=== PATIENT | male | born 1960 | race Caucasian/White ===

== ENCOUNTER 2023-07-22 15:28 | Emergency (ER) | payer MEDICARE ==
[2023-07-22 15:47] LABS: BASOPHILS ABSOLUTE AUTO 0.05 K/uL (0.00-0.10); BASOPHILS PERCENT AUTO 0.6 % (0.1-1.3); EOSINOPHILS ABSOLUTE AUTO 0.12 K/uL (0.00-0.40); EOSINOPHILS PERCENT AUTO 1.4 % (0.0-5.4); HEMATOCRIT 37.5 % (38.4-49.7); HEMOGLOBIN 12.7 g/dL (12.9-16.9); IMMATURE GRAN ABSOLUTE AUTO 0.06 K/uL (0.00-0.23); IMMATURE GRAN PERCENT AUTO 0.7 % (0.0-0.7); LYMPHOCYTES ABSOLUTE AUTO 2.13 K/uL (0.8-3.3); MEAN CORPUSCULAR HEMOGLOBIN 30.5 pg (31.6-35.5); MEAN CORPUSCULAR HGB CONC 33.9 g/dL (31.6-35.5); MEAN CORPUSCULAR VOLUME 89.9 fL (81.4-99.0); MONOCYTES ABSOLUTE AUTO 0.49 K/uL (0.20-0.90); MONOCYTES PERCENT AUTO 5.8 % (3.3-12.6); NEUTROPHILS ABSOLUTE AUTO 5.67 K/uL (1.0-7.6); NEUTROPHILS PERCENT AUTO 66.5 % (40.0-78.1); PLATELET COUNT,PLT 303 K/uL (130-375); RED BLOOD CELL COUNT 4.17 M/uL (4.14-5.76); WHITE BLOOD CELL COUNT,WBC 8.5 K/uL (3.2-11.0)
[2023-07-22 16:05] LABS: CALCIUM 9.2 mg/dL (8.5-10.1); CREATININE 1.1 mg/dL (0.8-1.3); EST CRCL DRUG DOSING (CG) 76.42 mL/min; POTASSIUM,K 4.1 mmol/L (3.6-5.2)
[2023-07-22 16:06] LABS: ANION GAP 12.1 mmol/L (5.0-14.0)
[2023-07-22] MEDS: Bacitracin Oint 1 GM U/D Packet TOP ONE (16:12)
[2023-07-22] MEDS: Sodium Chloride 0.9% 10 ML Syringe FLUSH PRN (16:12)
[2023-07-22] MEDS: Ketorolac 30 MG/ML SDV IVPUSH ONE (16:12)
[2023-07-22] MEDS: Acetaminophen 1,000 MG in Premix Bag 1 BAG IV ONE (16:48)
[2023-07-22] MEDS ORDERED: Dextrose 5%-0.9% NaCl with KCl 1,000 ML IV SCH (18:00)
[2023-07-22] MEDS: Dextrose 5%-0.9% NaCl 1,000 ML IV SCH (18:17)
== END 2023-07-22 20:11 ==
LOC: JP.ED 15:28
DX: M54.2 Cervicalgia (principal); M54.16 Radiculopathy, lumbar region; R07.89 Other chest pain; M54.9 Dorsalgia, unspecified; S22.20XA Unspecified fracture of sternum, initial encounter for closed fracture; S22.41XA Multiple fractures of ribs, right side, initial encounter for closed fracture; D64.9 Anemia, unspecified; T14.8XXA Other injury of unspecified body region, initial encounter; W22.8XXA Striking against or struck by other objects, initial encounter; Z88.0 Allergy status to penicillin
CPT/HCPCS: 36415; 70450; 71250; 72125; 72128; 72131; 76377; 80048; 85025; 93005; 96361; 96374; 96375; 99285; J0131; J1885; J3490